=== PATIENT | female | born 1975 | race Caucasian/White ===

== ENCOUNTER 2024-07-11 13:30 | Outpatient (CLI) | payer BC, SELFPAY | END 2024-07-11 13:31 | disposition home or self-care (01) | LOC: NFLDREF 07-14 10:33 | PROVIDERS: PCP Family Medicine; Referring Provider Family Medicine; Visit Provider Nurse Practitioner Family | DX: N30.00 Acute cystitis without hematuria (principal) | CPT/HCPCS: 87086 ==

== ENCOUNTER 2024-07-18 12:42 | Outpatient (CLI) | payer BC, SELFPAY | END 2024-07-18 12:43 | disposition home or self-care (01) | LOC: NFLDREF 07-20 17:33 | PROVIDERS: PCP Family Medicine; Referring Provider Family Medicine; Visit Provider Physician Assistant | DX: R35.0 Frequency of micturition (principal); N39.0 Urinary tract infection, site not specified | CPT/HCPCS: 87086 ==